=== PATIENT | female | born 1985 | race Caucasian/White ===

== ENCOUNTER 2023-11-19 20:17 | Outpatient (CLI) | payer OTHER ==
[2023-11-19] MEDS ORDERED: RINGERS SOLUTION,LACTATED 1,000 ML IV SCH (21:00)
[2023-11-20] MEDS ORDERED: TERBUTALINE SULFATE 1 MG/ML AMPUL ONE (08:02)
[2023-11-20] MEDS ORDERED: TERBUTALINE SULFATE 1 MG/ML AMPUL SUBCUTANEO ONE (08:15)
== END 2023-11-20 12:20 | disposition home or self-care (01) ==
LOC: OBS/DEL 20:17
PROVIDERS: ATTEND Obstetrics & Gynecology
DX: O26.893 Other specified pregnancy related conditions, third trimester (principal); O47.03 False labor before 37 completed weeks of gestation, third trimester; Z3A.35 35 weeks gestation of pregnancy

== ENCOUNTER 2023-12-15 08:16 | Inpatient (IN) | payer OTHER ==
[2023-12-15] VITALS (9 sets, daily range): BP systolic 113–133; BP diastolic 57–73; O2SAT 99
[~2023-12-15] VITALS: Ht 157.5 cm; Wt 64.4 kg
[2023-12-15] MEDS ORDERED: INTEGRA PLUS C1 EACH PO (10:23)
[2023-12-15] MEDS ORDERED: PRENATAL TABLE1 EAC1 PO (10:23)
[2023-12-15] MEDS ORDERED: OXYTOCIN 500 ML IV ONE (10:30)
[2023-12-15 10:43] LABS: HEMOGLOBIN 12.3 g/dL (12.0-15.00); MEAN CELL VOLUME 93.4 fL (80.00-100.00); MEAN CORPUSCULAR HGB CONC 34.2 g/dl (32.0-36.0); PLATELET COUNT 191 K/uL (150-450); RED BLOOD COUNT 3.85 M/uL (4.00-6.00); RED CELL DISTRIBUTION WIDTH 15.2 % (11.5-14.5)
[2023-12-15 11:10] LABS: INR 0.94; PARTIAL THROMBOPLASTIN TIME 25.6 SECONDS (22.0-34.0); PROTHROMBIN TIME 10.3 SECONDS (9.0-11.5)
[2023-12-15 11:15] LABS: ALBUMIN 2.9 gm/dL (3.4-5.0); BILIRUBIN TOTAL 0.51 mg/dL (0.3-1.2); CALCIUM 9.5 mg/dL (8.5-10.1); CREATININE SERUM 0.64 mg/dL (0.55-1.02); GFR 103.85; GLOBULINA 4.1 G/DL (2.4-3.5); POTASSIUM 4.23 mEq/L (3.5-5.1)
[2023-12-15] MEDS ORDERED: RINGERS SOLUTION,LACTATED 1,000 ML IV SCH (12:15)
[2023-12-15] MEDS ORDERED: ERYTHROMYCIN BASE OPHT 1GM EACH TUBE OP ONE (15:27)
[2023-12-15] MEDS ORDERED: CHLORHEXIDINE GLUCONATE 120 ML BOTTLE TOP ONE (15:28)
[2023-12-15] MEDS ORDERED: OXYTOCIN 20 UNITS/1000ML RL PIGGYBAG IV ONE (15:28)
[2023-12-15] MEDS ORDERED: LIDOCAINE HCL 1% 10ML VIAL ONE (15:28)
[2023-12-15] MEDS ORDERED: OXYTOCIN 1,000 ML IV SCH (17:15)
[2023-12-15] MEDS ORDERED: CHLORHEXIDINE GLUCONATE 120 ML BOTTLE TOP SCH (17:15)
[2023-12-15] MEDS ORDERED: IBUprofen 400 MG TABLET PO PRN (17:15)
[2023-12-16 02:05] VITALS: BP 111/70
[2023-12-16 06:39] LABS: HEMOGLOBIN 10.7 g/dL (12.0-15.00); MEAN CELL VOLUME 91.1 fL (80.00-100.00); MEAN CORPUSCULAR HEMOGLOBIN 31.4 pg (27.00-32.0); MEAN CORPUSCULAR HGB CONC 34.5 g/dl (32.0-36.0); PLATELET COUNT 174 K/uL (150-450); RED BLOOD COUNT 3.41 M/uL (4.00-6.00); RED CELL DISTRIBUTION WIDTH 15.4 % (11.5-14.5)
[2023-12-16 08:00] VITALS: BP 117/79
[2023-12-16 16:00] VITALS: BP 131/81
[2023-12-16] MEDS ORDERED: DOCUSATE SODIUM 100MG CAP PO SCH (17:00)
[2023-12-17] VITALS: BP 106/67
[2023-12-17 08:00] VITALS: BP 120/81
[2023-12-17 16:00] VITALS: BP 122/63
== END 2023-12-17 16:50 | disposition home or self-care (01) | DRG 807 ==
LOC: LDR 08:16 → OB/GYN 17:12 → SURH 12-21 11:41
PROVIDERS: Obstetrics & Gynecology; ADMIT Obstetrics & Gynecology; ATTEND Obstetrics & Gynecology
PROC: 10E0XZZ Delivery of Products of Conception, External Approach (ICD-10-PCS; principal; 2023-12-15)
PROC: 0KQM0ZZ Repair Perineum Muscle, Open Approach (ICD-10-PCS; 2023-12-15)
PROC: 4A1HXCZ Monitoring of Products of Conception, Cardiac Rate, External Approach (ICD-10-PCS; 2023-12-15)
DX: O70.1 Second degree perineal laceration during delivery (principal); Z37.0 Single live birth; Z3A.37 37 weeks gestation of pregnancy; Z20.822 Contact with and (suspected) exposure to COVID-19